=== PATIENT | male | born 1965 | race Caucasian/White ===

== ENCOUNTER 2016-10-01 03:04 | Emergency (ER) | payer BC ==
[2016-10-01] MEDS ORDERED: BABY ASPIRIN 81 MG CHEW PO ONE (03:24)
[2016-10-01] MEDS ORDERED: Nitrostat 0.4 MG (ED) SL ONE ×2 (03:24→03:46)
--- NOTE | 2016-10-01 03:38 | ERPHSYRPT ---
- History of Present Illness Time Seen by Provider: 10/01/16 03:08 Source: patient Exam Limitations: no limitations Patient Subjective Stated Complaint: pt states he has been having midsternal chest pain for approx 4 hours. states he has taken tums x4 at home with no relief. pain is worse when laying flat or laying on side. Triage Nursing Assessment: pt alert and oriented, asnwers questions approp. pt ambulatory with steady gait noted. respirations nonlabored with lungs cta. sinus rhythm on monitor in 80's. Physician History: FOR THE PAST 4.5 HOURS PT HAS HAD CONSTANT SHARP NON-RADIATING MID ANTERIOR CHEST PAIN. PT DENIES NAUSEA, VOMITING, FEVER, SHORTNESS OF AIR, DIAPHORESIS, ABDOMINAL PAIN. Allergies/Adverse Reactions: No Known Drug Allergies Allergy (Verified 10/01/16 03:27) Hx Tetanus, Diphtheria Vaccination/Date Given: Yes Hx Influenza Vaccination/Date Given: No Hx Pneumococcal Vaccination/Date Given: No Immunizations Up to Date: Yes - Review of Systems Constitutional: No Fever Respiratory: No Dyspnea Cardiac: Chest Pain Abdominal/Gastrointestinal: No Abdominal Pain, No Nausea, No Vomiting Neurological: No Headache Endocrine: No Excessive Sweating All Other Systems: Reviewed and Negative - Past Medical History Cardiac History: Arrhythmia Endocrine Medical History: Hypothyroidism GI Medical History: GERD - Past Surgical History Past Surgical History: No Male Surgical History: Vasectomy - Social History Smoking Status: Current every day smoker How long have you smoked: 1yr Exposure to second hand smoke: Yes Drug Use: none Patient Lives Alone: No - Nursing Vital Signs Nursing Vital Signs: Initial Vital Signs Pulse Rate 84 10/01/16 03:05 Respiratory Rate 19 10/01/16 03:05 Blood Pressure 120/82 10/01/16 03:05 O2 Sat by Pulse Oximetry 100 10/01/16 03:05 Pain Scale Pain Intensity 8 - Physical Exam General Appearance: alert Eye Exam: PERRL/EOMI Ears, Nose, Throat Exam: pharynx normal, moist mucous membranes Neck Exam: normal inspection Respiratory Exam: lungs clear, No chest tenderness Cardiovascular Exam: normal heart sounds Gastrointestinal/Abdomen Exam: soft, normal bowel sounds Back Exam: normal range of motion Extremity Exam: normal inspection, No pedal edema Neurologic Exam: alert, cooperative Skin Exam: warm, dry SpO2 Interpretation: normal SpO2: 100 Oxygen Delivery: Room Air - Course Nursing assessment & vital signs reviewed: Yes EKG Interpreted by Me: RATE (86), Sinus Rhythm, NORMAL AXIS, NORMAL INTERVALS - Radiology Exams Chest X-ray Interpretation: Interpreted by me, No Pneumonia Ordered Tests: Active Orders 24 hr Category Date Time Status Calcine Furnace Loader STAT Care 10/01/16 03:24 Active EKG-ER Only STAT Care 10/01/16 03:24 Active IV Insertion STAT Care 10/01/16 03:24 Active Oxygen-ED Only NASAL CANNULA 2 lpm Care 10/01/16 03:24 Active Pulse Oximetry (ED) STAT Care 10/01/16 03:24 Active CHEST 1 VIEW (PORTABLE) Stat Exams 10/01/16 03:25 Taken AMYLASE Stat Lab 10/01/16 03:36 Completed CBC W DIFF Stat Lab 10/01/16 03:36 Completed CMP Stat Lab 10/01/16 03:36 Completed LIPASE Stat Lab 10/01/16 03:36 Completed MAGNESIUM Stat Lab 10/01/16 03:36 Completed TROPONIN Q3H Lab 10/01/16 03:36 Completed TROPONIN Q3H Lab 10/01/16 06:30 Ordered TROPONIN Q3H Lab 10/01/16 09:30 Ordered TROPONIN Q3H Lab 10/01/16 12:30 Ordered TROPONIN Q3H Lab 10/01/16 15:30 Ordered UA W/RFX UR CULTURE Stat Lab 10/01/16 04:02 Completed Urine Triage Profile Stat Lab 10/01/16 04:02 Completed Medication Summary Discontinued Medications Generic Name Dose Route Start Last Admin Trade Name Freq PRN Reason Stop Dose Admin Al Hydrox/Mg Hydrox/Simethicone Confirm 10/01/16 03:48 Maalox Es 30 Ml Unit Dose Administered 10/01/16 03:49 Dose 30 ml .ROUTE .STK-MED ONE Aspirin 324 mg 10/01/16 03:24 10/01/16 03:51 Baby Aspirin 81 Mg Chew PO 10/01/16 03:25 324 mg STAT ONE Administration Aspirin Confirm 10/01/16 03:46 Baby Aspirin 81 Mg Chew Administered 10/01/16 03:47 Dose 324 mg .ROUTE .STK-MED ONE Belladonna Alkaloids/Phenobarbital 60 ml 10/01/16 03:39 10/01/16 03:53 Gi Cocktail 60ml (Belladonn/Phenobarb/Lidoc* PO 10/01/16 03:40 60 ml STAT ONE Administration Belladonna Alkaloids/Phenobarbital Confirm 10/01/16 03:48 Donnatol Liquid Administered 10/01/16 03:49 Dose 64.8 mg .ROUTE .STK-MED ONE Diazepam 10 mg 10/01/16 03:48 10/01/16 03:52 Valium 5 Mg PO 10/01/16 03:49 10 mg STAT ONE Administration Diazepam Confirm 10/01/16 03:51 Valium 5 Mg Administered 10/01/16 03:52 Dose 10 mg .ROUTE .STK-MED ONE Lidocaine HCl Confirm 10/01/16 03:47 Xylocaine Hcl Viscous * Administered 10/01/16 03:48 Dose 20 ml .ROUTE .STK-MED ONE Nitroglycerin 0.4 mg 10/01/16 03:24 10/01/16 03:53 Nitrostat 0.4 Mg (Ed) SL 10/01/16 03:25 0.4 mg STAT ONE Administration Nitroglycerin Confirm 10/01/16 03:46 Nitrostat 0.4 Mg (Ed) Administered 10/01/16 03:47 Dose 0.4 mg SL .STK-MED ONE Lab/Rad Data: Laboratory Result Diagrams 10/01/16 03:36 10/01/16 03:36 Laboratory Results 10/01/16 10/01/16 10/01/16 Range/Units 04:02 04:02 03:36 WBC (4.0-10.5) K/mm3 RBC (4.1-5.6) M/mm3 Hgb (12.5-18.0) gm/dl Hct (42-50) % MCV (78-100) fl MCH (26-32) pg MCHC (32-36) g/dl RDW (11.5-14.0) % Plt Count (150-450) K/mm3 MPV (6-9.5) fl Gran % (36.0-66.0) % Lymphocytes % (24.0-44.0) % Monocytes % (0.0-12.0) % Eosinophils % (0.00-5.0) % Basophils % (0.0-0.4) % Basophils # (0-0.4) Sodium (136-145) mEq/L Potassium (3.5-5.1) mEq/L Chloride (98-107) mEq/L Carbon Dioxide (21-32) mEq/L Anion Gap (5-15) MEQ/L BUN (9-20) mg/dL Creatinine (0.55-1.30) mg/dl Estimated GFR ML/MIN Glucose (70-110) MG/DL Calcium (8.5-10.1) mg/dL Magnesium (1.8-2.4) mg/dL Total Bilirubin (0.2-1.0) mg/dL AST (15-37) U/L ALT (12-78) U/L Alkaline Phosphatase (46-116) U/L Troponin I < 0.017 (0.000-0.056) ng/ml Serum Total Protein (6.4-8.2) gm/dL Albumin (3.4-5.0) g/dL Amylase (25-115) U/L Lipase (73-393) U/L Ur Collection Type VOID Urine Color YELLOW (YELLOW) Urine Appearance CLEAR (CLEAR) Urine pH 5.0 (5-6) Ur Specific Thornton 1.010 (1.005-1.025) Urine Protein NEGATIVE (Negative) Urine Ketones NEGATIVE (NEGATIVE) Urine Blood NEGATIVE (0-5) Kenrick/ul Urine Nitrite NEGATIVE (NEGATIVE) Urine Bilirubin NEGATIVE (NEGATIVE) Urine Urobilinogen NORMAL (0-1) mg/dL Ur Leukocyte Esterase NEGATIVE (NEGATIVE) Urine Glucose NEGATIVE (NEGATIVE) mg/dL Urine Opiates Level NEG. (NEGATIVE) Ur Methadone NEG. (NEGATIVE) Urine Barbiturates NEG. (NEGATIVE) Ur Phencyclidine (PCP) NEG. (NEGATIVE) Urine Amphetamine NEG. (NEGATIVE) U Benzodiazepine Level POS. (NEGATIVE) Urine Cocaine NEG. (NEGATIVE) Urine Marijuana (THC) NEG. (NEGATIVE) Specimen Received 10/01/16 0405 10/01/16 10/01/16 Range/Units 03:36 03:36 WBC 11.6 H (4.0-10.5) K/mm3 RBC 4.93 (4.1-5.6) M/mm3 Hgb 14.2 (12.5-18.0) gm/dl Hct 43.8 (42-50) % MCV 88.8 (78-100) fl MCH 28.8 (26-32) pg MCHC 32.4 (32-36) g/dl RDW 13.8 (11.5-14.0) % Plt Count 204 (150-450) K/mm3 MPV 10.8 H (6-9.5) fl Gran % 73.2 H (36.0-66.0) % Lymphocytes % 14.0 L (24.0-44.0) % Monocytes % 11.1 (0.0-12.0) % Eosinophils % 1.3 (0.00-5.0) % Basophils % 0.4 (0.0-0.4) % Basophils # 0.05 (0-0.4) Sodium 140 (136-145) mEq/L Potassium 3.9 (3.5-5.1) mEq/L Chloride 101 (98-107) mEq/L Carbon Dioxide 29.1 (21-32) mEq/L Anion Gap 14.2 (5-15) MEQ/L BUN 12 (9-20) mg/dL Creatinine 1.13 (0.55-1.30) mg/dl Estimated GFR > 60 ML/MIN Glucose 90 (70-110) MG/DL Calcium 9.2 (8.5-10.1) mg/dL Magnesium 2.1 (1.8-2.4) mg/dL Total Bilirubin 0.40 (0.2-1.0) mg/dL AST 19 (15-37) U/L ALT 7 L (12-78) U/L Alkaline Phosphatase 62 (46-116) U/L Troponin I (0.000-0.056) ng/ml Serum Total Protein 6.9 (6.4-8.2) gm/dL Albumin 3.8 (3.4-5.0) g/dL Amylase 38 (25-115) U/L Lipase 84 (73-393) U/L Ur Collection Type Urine Color (YELLOW) Urine Appearance (CLEAR) Urine pH (5-6) Ur Specific Thornton (1.005-1.025) Urine Protein (Negative) Urine Ketones (NEGATIVE) Urine Blood (0-5) Kenrick/ul Urine Nitrite (NEGATIVE) Urine Bilirubin (NEGATIVE) Urine Urobilinogen (0-1) mg/dL Ur Leukocyte Esterase (NEGATIVE) Urine Glucose (NEGATIVE) mg/dL Urine Opiates Level (NEGATIVE) Ur Methadone (NEGATIVE) Urine Barbiturates (NEGATIVE) Ur Phencyclidine (PCP) (NEGATIVE) Urine Amphetamine (NEGATIVE) U Benzodiazepine Level (NEGATIVE) Urine Cocaine (NEGATIVE) Urine Marijuana (THC) (NEGATIVE) Specimen Received - Departure Time of Disposition: 04:20 Departure Disposition: Home Clinical Impression: CHEST PAIN Condition: Stable Critical Care Time: No Instructions: Chest Pain Additional Instructions: FOLLOW UP WITH PRIVATE DOCTOR TODAY.
[2016-10-01] MEDS ORDERED: GI COCKTAIL 60ML (Belladonn/Phenobarb/Lidoc PO ONE (03:39)
[2016-10-01] MEDS ORDERED: BABY ASPIRIN 81 MG CHEW ONE (03:46)
[2016-10-01] MEDS ORDERED: XYLOCAINE HCl Viscous ONE (03:47)
[2016-10-01] MEDS ORDERED: Donnatol Liquid ONE (03:48)
[2016-10-01] MEDS ORDERED: MAALOX ES 30 ML UNIT DOSE ONE (03:48)
[2016-10-01] MEDS ORDERED: Valium 5 MG PO ONE (03:48)
[2016-10-01 03:49] LABS: BASOPHIL % 0.4 % (0.0-0.4); Eosinophil % 1.3 % (0.00-5.0); Granulocytes % 73.2 % (36.0-66.0); Mean Cell Volume 88.8 fl (78-100); Mean Corpuscular Hemoglobin 28.8 pg (26-32); Mean Platelet Volume 10.8 fl (6-9.5); Monocytes % 11.1 % (0.0-12.0); Platelet Count 204 K/mm3 (150-450); Red Blood Count 4.93 M/mm3 (4.1-5.6); Red Cell Distribution Width 13.8 % (11.5-14.0); White Blood Count 11.6 K/mm3 (4.0-10.5)
[2016-10-01] MEDS ORDERED: Valium 5 MG ONE (03:51)
[2016-10-01 04:04] LABS: ALBUMIN 3.8 g/dL (3.4-5.0); ALKALINE PHOSPHATASE 62 U/L (46-116); ANION GAP 14.2 MEQ/L (5-15); BLOOD UREA NITROGEN 12 mg/dL (9-20); CHLORIDE 101 mEq/L (98-107); Carbon Dioxide 29.1 mEq/L (21-32); Glucose 90 MG/DL (70-110); LIPASE 84 U/L (73-393); MAGNESIUM 2.1 mg/dL (1.8-2.4); Potassium 3.9 mEq/L (3.5-5.1); SGOT/AST 19 U/L (15-37); SGPT/ALT 7 U/L (12-78); SODIUM 140 mEq/L (136-145); Total Protein 6.9 gm/dL (6.4-8.2)
[2016-10-01 04:18] LABS: ADD URINE CULTURE? NO (NO); Bilirubin NEGATIVE (NEGATIVE); Blood NEGATIVE Ery/ul (0-5); COMPLETE URINE MICROSCOPIC? NO; Collection Type VOID; Glucose NEGATIVE (NEGATIVE); Leukocyte Esterase NEGATIVE (NEGATIVE)
[2016-10-01 04:37] VITALS: BP 106/73; PULSE 74; O2SAT 96
--- NOTE | 2016-10-01 09:23 | XRAY ---
Indication: Chest pain. Comparison: None Portable chest demonstrates subtle left perihilar infiltrate versus atelectasis. Remaining lungs clear. Heart is not enlarged for AP portable technique. Bony thorax intact. Impression: Left perihilar infiltrate/atelectasis. Correlate clinically. Comment: Left perihilar opacity not reported on preliminary interpretation by the ER clinician. I gave telephone report to Dr. Powers in the ER at 0917 hrs. on October 01, 2016.
== END 2016-10-01 04:38 | disposition home or self-care (01) ==
LOC: ED 03:04
DX: R07.89 Other chest pain (principal)
CPT/HCPCS: 36000; 36415; 71010; 80053; 80307; 81002; 82150; 83690; 83735; 84484; 85025; 93005; 93041; 99284; A9270-GY